=== PATIENT | male | born 1950 | race Caucasian/White ===

== ENCOUNTER 2018-05-09 08:20 | Outpatient (CLI) | payer MEDICARE ==
[2018-05-09] VITALS (13 sets, daily range): BP systolic 110–149; BP diastolic 61–77; PULSE 70–84
[~2018-05-09] VITALS: Ht 175.3 cm; Wt 72.7 kg
[~2018-05-09 08:20] MED LIST: FLOMAX 0.40.4 MG/CAP PO; NEURONTIN100 MG/CAP PO; PRILOSEC 20MG20 MG PO; PRINIVIL20 MG PO
== END 2018-05-09 12:53 | disposition home or self-care (01) ==
LOC: COL.RAD 08:20
DX: J90 Pleural effusion, not elsewhere classified (principal); I31.3 Pericardial effusion (noninflammatory); R91.8 Other nonspecific abnormal finding of lung field; D50.9 Iron deficiency anemia, unspecified; Z85.528 Personal history of other malignant neoplasm of kidney; Z90.5 Acquired absence of kidney